=== PATIENT | female | born 1940 | race Asian ===

== ENCOUNTER 2020-04-02 12:36 | Emergency (ER) | payer OTHER | END 2020-04-02 13:20 | disposition home or self-care (01) | LOC: JVIRT 12:36 | DX: Z03.818 Encounter for observation for suspected exposure to other biological agents ruled out (principal) | CPT/HCPCS: C9803; G2012-GT; U0003 ==

== ENCOUNTER 2020-09-10 09:46 | Emergency (ER) | payer OTHER ==
[2020-09-10 10:03] VITALS: BP 124/73; PULSE 81; TEMP 97.8; BMI 27.8
[2020-09-10 11:08] LABS: BASO % 0.9 % (0-2.0); HEMATOCRIT 43.1 % (32.4-45.2); HEMOGLOBIN 14.5 GM/dL (10.7-15.3); LYMPH % 18.3 % (8-40); MCH 32.4 pg (25.7-33.7); MCHC 33.6 g/dl (32.0-36.0); MEAN CELL VOLUME 96.6 fl (80-96); MEAN PLT VOLUME 8.4 fl (7.5-11.1); MONO % 7.2 % (3.8-10.2); NEUT % 71.6 % (42.8-82.8); PLATELET COUNT 283 K/MM3 (134-434); RBC 4.46 M/mm3 (3.60-5.2); RDW 13.4 % (11.6-15.6); WHITE BLOOD COUNT 6.2 K/mm3 (4.0-10.0)
[2020-09-10 11:16] LABS: INR 0.92 (0.83-1.09); PROTHROMBIN TIME (PATIENT) 11.4 SEC (9.7-13.0)
[2020-09-10 11:18] LABS: ACTIVATED PTT 37.4 SECONDS (25.2-36.5)
== END 2020-09-10 11:30 | disposition home or self-care (01) ==
LOC: JERFT 09:46
DX: R04.0 Epistaxis (principal)
CPT/HCPCS: 36415; 85025; 85384; 85610; 85730; 99283-25

== ENCOUNTER 2021-01-06 10:20 | Emergency (ER) | payer OTHER ==
[2021-01-06 10:42] VITALS: BP 135/63; PULSE 89; TEMP 99.1; BMI 27.2
[2021-01-06] MEDS ORDERED: NAPROXEN 500 MG TABLET PO ONE (11:07)
[2021-01-06] MEDS ORDERED: METHOCARBAMOL 500 MG TABLET PO ONE (11:07)
[2021-01-06] MEDS ORDERED: METHOCARBAMOL 500 MG TABLET ONE (11:14)
[2021-01-06] MEDS ORDERED: NAPROXEN 500 MG TABLET ONE (11:14)
== END 2021-01-06 12:25 | disposition home or self-care (01) ==
LOC: JERFT 10:20 → JER 10:20 → JERFT 12:25
DX: S43.402A Unspecified sprain of left shoulder joint, initial encounter (principal); X50.0XXA Overexertion from strenuous movement or load, initial encounter
CPT/HCPCS: 73030-TC-LT-FY; 99283-25